=== PATIENT | female | born 1995 | race Caucasian/White ===

== ENCOUNTER → 2017-01-29 | Outpatient (CLI) | payer BC ==
[2017-01-30 14:31] LABS: CONTROL LINE MONO EB INT CTR LINE PRESENT; MONO REFLEX EBV VCA IgM NEGATIVE (NEGATIVE)
== END ==
LOC: M LAB 16:52
PROVIDERS: ATTEND Family Medicine
DX: J02.9 Acute pharyngitis, unspecified (principal)

== ENCOUNTER → 2017-03-14 | Outpatient (REF) | payer BC | LOC: M SFHCWAGY 08:30 | PROVIDERS: ATTEND Nurse Practitioner Women's Health | DX: Z12.4 Encounter for screening for malignant neoplasm of cervix (principal) ==

== ENCOUNTER → 2017-04-14 | Outpatient (REF) | payer BC | LOC: M SFHCWAGY 11:56 | PROVIDERS: ATTEND Nurse Practitioner Women's Health | DX: R87.615 Unsatisfactory cytologic smear of cervix (principal) ==

== ENCOUNTER → 2017-07-14 | Outpatient (REF) | payer BC | LOC: M SFHCWAGY 15:34 | PROVIDERS: ATTEND Nurse Practitioner Women's Health | DX: Z11.3 Encounter for screening for infections with a predominantly sexual mode of transmission (principal) ==

== ENCOUNTER → 2018-03-17 | Outpatient (REF) | payer BC ==
[2018-03-17 14:44] LABS: CHLAMYDIA DNA AMPLIFICATION NEGATIVE (NEGATIVE); GC DNA AMPLIFICATION NEGATIVE (NEGATIVE)
== END ==
LOC: M SFHCWAGY 09:42
DX: Z12.4 Encounter for screening for malignant neoplasm of cervix (principal); Z11.3 Encounter for screening for infections with a predominantly sexual mode of transmission
CPT/HCPCS: 87591

== ENCOUNTER → 2018-08-10 | Outpatient (REF) | payer BC ==
[2018-08-10 22:07] LABS: CHLAMYDIA DNA AMPLIFICATION NEGATIVE (NEGATIVE); GC DNA AMPLIFICATION NEGATIVE (NEGATIVE)
== END ==
LOC: M SFHCWAGY 15:49
DX: Z11.3 Encounter for screening for infections with a predominantly sexual mode of transmission (principal)
CPT/HCPCS: 87591

== ENCOUNTER → 2018-10-23 | Outpatient (REF) | payer BC ==
[2018-10-23 19:41] LABS: CHLAMYDIA DNA AMPLIFICATION NEGATIVE (NEGATIVE); GC DNA AMPLIFICATION NEGATIVE (NEGATIVE)
== END ==
LOC: M LAB REF 15:43
PROVIDERS: ATTEND Family Medicine
DX: N76.0 Acute vaginitis (principal)

== ENCOUNTER → 2018-11-12 | Outpatient (CLI) | payer BC ==
--- NOTE | 2018-11-13 02:38 | REP ---
Clinical: Pelvic pain. IUD positioning . Technique: Transabdominal pelvic ultrasound followed by transvaginal examination for better evaluation of the endometrium and adnexa with color Doppler evaluation of the ovaries. Findings: Bladder is unremarkable and measures 9.1 x 8.2 x 8.9 cm . Normal anteverted uterus measures 8.4 x 3.5 x 3.8 cm . The endometrial complex measures 6.3 mm thickness. No discrete uterine or endometrial abnormalities are appreciated. IUD identified in satisfactory position. Bilateral ovaries are normal in appearance and vascularity without evidence for torsion. Right ovary measures 2.2 x 1.3 x 2.3 cm ; R I = 0.52 . Left ovary measures 4.8 x 2.4 x 4.1 cm with 4.1 x 1.8 x 3.0 cm cyst/daughter cyst complex ; R I = 0.53 . no pelvic fluid or adnexal mass lesion . Impression: 1. normal anteverted uterus with IUD in satisfactory position. 2. Normal bilateral ovaries without evidence for torsion.
== END ==
LOC: M WHC 12:14
PROVIDERS: ATTEND Nurse Practitioner Women's Health
DX: R10.2 Pelvic and perineal pain (principal); Z97.5 Presence of (intrauterine) contraceptive device

== ENCOUNTER → 2019-04-30 | Outpatient (CLI) | payer BC ==
--- NOTE | 2019-04-30 10:37 | REPVR ---
EXAM: CT Head Without Contrast EXAM DATE/TIME: 04/30/2019 10:11 AM CLINICAL HISTORY: 24 years old, female; Pain; Headache not specified TECHNIQUE: Imaging protocol: Computed tomography images of the head without contrast. Radiation optimization: All CT scans at this facility use at least one of these dose optimization techniques: automated exposure control; mA and/or kV adjustment per patient size (includes targeted exams where dose is matched to clinical indication); or iterative reconstruction. COMPARISON: None FINDINGS: Brain: Symmetric caliber of the cortical sulci. Normal saha-white matter differentiation. No acute cortical infarct, mass effect, or intracranial hemorrhage. Ventricles: Normal configuration of the ventricles. Bones/joints: No acute calvarial pathology. Sinuses: No sinus fluid. Mastoid air cells: Mild asymmetry in pneumatization of the mastoid air cells. Soft tissues: Unremarkable. IMPRESSION: No acute intracranial pathology. Electronically signed by: Scott Morgan On 04/30/2019 10:36:33 AM
== END ==
LOC: M RAD 09:43
PROVIDERS: ATTEND Physician Assistant
DX: R51 Headache (principal)

== ENCOUNTER → 2020-06-28 | Outpatient (CLI) | payer BC ==
--- NOTE | 2020-06-29 15:15 | ECHO ---
DATE OF PROCEDURE: 06/28/2020 Age: 25 Gender: Female Height: 64 inches Weight: 180 pounds Body surface area: 1.87 m2 PATIENT LOCATION: Outpatient. REFERRING PHYSICIAN: VADIM Rodriguez INDICATION: Family history of ischemic heart disease. MEASUREMENTS: 2D Measurements: RV 2.8 cm LV 3.9 cm Septum 1.0cm Posterior wall 1.0 cm Aortic Root 2.9 cm LA 2.9 cm LVEF 70 % Doppler Measurements: AV 1.3 m/s LVOT 0.86 m/s LVOT diameter 1.6 cm MV-E 75, A 60, E/A ratio 1.2 Early mitral deceleration time 222 m/s E prime medial 8.1, A prime medial 10, E prime lateral 10 PV 0.75 m/s Pulmonary artery acceleration time 130 m/s PASP 24 mmHg IVC 1.5 cm COMMENTS: Normal sinus rhythm without intraventricular conduction disturbance. M-mode and two-dimensional echocardiography was performed with pulsed, continuous wave, color flow, and tissue Doppler studies. Normal left ventricular size, wall thickness, and wall motion. Normal left atrial size and Doppler assessment of LV diastolic function and estimated mean left atrial pressure. Normal right heart chamber sizes and motion and estimated pulmonary arterial pressure. Normal inferior vena cava (IVC) size and collapse against an elevated central venous pressure. Normal aortic root size. Normal appearing and functioning valvular structures. No apparent intracardiac mass or pericardial effusion. MTDD
== END ==
LOC: M CARPUL 09:00
PROVIDERS: ATTEND Physician Assistant
DX: Z82.49 Family history of ischemic heart disease and other diseases of the circulatory system (principal)

== ENCOUNTER → 2020-09-12 | Outpatient (CLI) | payer SELFPAY | LOC: M LABSMTC 18:01 | PROVIDERS: ATTEND Pediatrics | DX: Z11.59 Encounter for screening for other viral diseases (principal) ==

== ENCOUNTER → 2020-10-01 | Outpatient (CLI) | payer SELFPAY | LOC: M LABSMTC 11:24 | PROVIDERS: ATTEND Pediatrics | DX: Z20.828 Contact with and (suspected) exposure to other viral communicable diseases (principal) ==

== ENCOUNTER → 2020-10-26 | Outpatient (REF) | payer BC | LOC: M LAB REF 18:19 | PROVIDERS: ATTEND Physician Assistant | DX: J06.9 Acute upper respiratory infection, unspecified (principal) ==

== ENCOUNTER → 2021-01-10 | Outpatient (REF) | payer BC | LOC: M SFHCWAGY 13:38 | PROVIDERS: ATTEND Nurse Practitioner Women's Health | DX: Z12.4 Encounter for screening for malignant neoplasm of cervix (principal); B37.3 Candidiasis of vulva and vagina; R87.610 Atypical squamous cells of undetermined significance on cytologic smear of cervix (ASC-US) | CPT/HCPCS: 87624; G0123 ==

== ENCOUNTER → 2021-02-19 | Outpatient (REF) | payer BC | LOC: M SFHCWAGY 12:57 | PROVIDERS: ATTEND Nurse Practitioner Women's Health | DX: R87.610 Atypical squamous cells of undetermined significance on cytologic smear of cervix (ASC-US) (principal); R87.810 Cervical high risk human papillomavirus (HPV) DNA test positive ==

== ENCOUNTER → 2021-07-03 | Outpatient (REF) | payer BC | LOC: M LAB REF 00:01 | PROVIDERS: ATTEND Family Medicine | DX: J06.9 Acute upper respiratory infection, unspecified (principal) ==

== ENCOUNTER → 2022-02-27 | Outpatient (REF) | payer BC | LOC: M PLALAB 14:28 | PROVIDERS: ATTEND Advanced Practice Midwife | DX: Z11.3 Encounter for screening for infections with a predominantly sexual mode of transmission (principal) ==

== ENCOUNTER → 2022-08-07 | Outpatient (REF) | payer BC | LOC: M PLALAB 14:53 | PROVIDERS: ATTEND Advanced Practice Midwife | DX: R87.612 Low grade squamous intraepithelial lesion on cytologic smear of cervix (LGSIL) (principal); R87.810 Cervical high risk human papillomavirus (HPV) DNA test positive | CPT/HCPCS: 87624; G0123 ==

== ENCOUNTER → 2022-08-16 | Outpatient (CLI) | payer BC ==
[2022-08-16 15:54] LABS: HEMOGLOBIN A1c 5.6 %
== END ==
LOC: M PLALAB 09:13
PROVIDERS: ATTEND Advanced Practice Midwife
DX: L70.0 Acne vulgaris (principal)

== ENCOUNTER → 2022-10-16 | Outpatient (REF) | payer BC | LOC: M PLALAB 14:22 | PROVIDERS: ATTEND Obstetrics & Gynecology | DX: R87.612 Low grade squamous intraepithelial lesion on cytologic smear of cervix (LGSIL) (principal); R87.611 Atypical squamous cells cannot exclude high grade squamous intraepithelial lesion on cytologic smear of cervix (ASC-H) ==

== ENCOUNTER → 2023-05-12 | Outpatient (CLI) | payer BC ==
[2023-05-12 08:37] LABS: BASO % 0.7 % (0.0-1.0); EOS # 0.1 10^3/uL (0.0-0.5); EOS % 1.1 % (0.0-3.0); HEMATOCRIT 41.1 % (36.0-47.0); HEMOGLOBIN 13.6 g/dl (12.0-15.5); LYMPH # 1.3 10^3/uL (1.5-5.0); LYMPH % 27.9 % (24.0-44.0); MEAN CORPUSCULAR HEMOGLOBIN 29.5 pg (27.0-33.0); MEAN CORPUSCULAR HGB CONC 33.1 g/dl (32.0-36.5); MEAN CORPUSCULAR VOLUME 89.2 fl (80.0-96.0); MONO # 0.3 10^3/uL (0.0-0.8); MONO % 7.2 % (2.0-8.0); NEUTROPHILS # 2.9 10^3/uL (1.5-8.5); NEUTROPHILS % 62.9 % (36.0-66.0); PLATELET COUNT, AUTOMATED 220 10^3/uL (150-450); RED BLOOD COUNT 4.61 10^6/uL (4.00-5.40); WHITE BLOOD COUNT 4.6 10^3/uL (4.0-10.0)
[2023-05-12 08:54] LABS: HEMOGLOBIN A1c 5.4 % (4.0-6.0)
[2023-05-12 09:11] LABS: ALBUMIN 3.7 G/DL (3.2-5.2); ALKALINE PHOSPHATASE 99 U/L (46-116); ALT/SGPT 19 U/L (7.0-40); AST/SGOT 9 U/L (<34); BILIRUBIN,TOTAL 0.5 MG/DL (0.3-1.2); BLOOD UREA NITROGEN 12 MG/DL (9-23); CALCIUM LEVEL 9.3 MG/DL (8.5-10.1); CARBON DIOXIDE LEVEL 27 MMOL/L (20-31); CHLORIDE LEVEL 106 MMOL/L (98-107); CHOLESTEROL LEVEL 138 MG/DL (<200); CHOLESTEROL RISK RATIO 2.73 (<5); CREATININE FOR GFR 0.74 MG/DL (0.55-1.30); GLOMERULAR FILTRATION RATE > 60.0 (>60); GLUCOSE, FASTING 98 MG/DL (60-100); HDL CHOLESTEROL 50.4 MG/DL (>40); LDL CHOLESTEROL 72.6 MG/DL (<100); NON-HDL-C 87.6 MG/DL; POTASSIUM SERUM 4.3 MMOL/L (3.5-5.1); SODIUM LEVEL 141 MMOL/L (136-145); TOTAL PROTEIN 6.6 G/DL (5.7-8.2); TRIGLYCERIDES LEVEL 75 MG/DL (<150)
== END ==
LOC: M LAB 08:01
PROVIDERS: ATTEND Family Medicine
DX: Z13.29 Encounter for screening for other suspected endocrine disorder (principal); Z13.0 Encounter for screening for diseases of the blood and blood-forming organs and certain disorders involving the immune mechanism; Z13.220 Encounter for screening for lipoid disorders

== ENCOUNTER → 2023-05-30 | Outpatient (REF) | payer BC | LOC: M PLALAB 07:52 | PROVIDERS: ATTEND Advanced Practice Midwife | DX: Z12.4 Encounter for screening for malignant neoplasm of cervix (principal) | CPT/HCPCS: 87624; G0123 ==

== ENCOUNTER → 2023-06-17 | Outpatient (CLI) | payer BC ==
[2023-06-17 14:19] LABS: IRON (FE) 76 UG/DL (50-170); PERCENT SATURATION 21.8 % (13.2-45.0); TOTAL IRON BINDING CAPACITY 349 UG/DL (250-425)
[2023-06-17 14:21] LABS: FERRITIN 55.1 NG/ML (7.3-270.7); FREE T4 1.04 NG/DL (0.89-1.76); THYROID STIMULATING HORMONE 0.984 uIU/ML (0.55-4.78)
[2023-06-17 14:22] LABS: FOLATE > 24.0 NG/ML (>5.4); TOTAL 25(OH) VITAMIN D 38.2 NG/ML (20.0-100.0); VITAMIN B12 LEVEL 473 PG/ML (211-911)
== END ==
LOC: M CARPUL 13:17
PROVIDERS: ATTEND Family Medicine
DX: R53.83 Other fatigue (principal); Z82.49 Family history of ischemic heart disease and other diseases of the circulatory system

== ENCOUNTER → 2024-02-23 | Outpatient (CLI) | payer BC | LOC: M WHC 07:56 | PROVIDERS: ATTEND Family Medicine | DX: R74.01 Elevation of levels of liver transaminase levels (principal) ==

== ENCOUNTER → 2024-06-03 | Outpatient (REF) | payer BC ==
[2024-06-03 14:28] LABS: Trichomonas vaginalis (AMP) NOT DETECTED (NEGATIVE)
[2024-06-03 14:51] LABS: GC DNA AMPLIFICATION NEGATIVE (NEGATIVE)
[2024-06-09 13:11] LABS: HPV APTIMA Not Detected (Not Detected)
== END ==
LOC: M PLALAB 10:19
PROVIDERS: ATTEND Advanced Practice Midwife
DX: Z12.4 Encounter for screening for malignant neoplasm of cervix (principal); Z11.51 Encounter for screening for human papillomavirus (HPV); Z11.3 Encounter for screening for infections with a predominantly sexual mode of transmission
CPT/HCPCS: 87624; 87661; 87810; 87850; G0123

== ENCOUNTER → 2025-02-05 | Outpatient (CLI) | payer BC | LOC: M RAD 13:56 | PROVIDERS: ATTEND Family Medicine | DX: M54.6 Pain in thoracic spine (principal) ==

== ENCOUNTER → 2025-06-09 | Outpatient (REF) | payer BC ==
[2025-06-11 17:13] LABS: HPV APTIMA Not Detected (Not Detected)
== END ==
LOC: M PLALAB 15:53
PROVIDERS: ATTEND Advanced Practice Midwife
DX: Z12.4 Encounter for screening for malignant neoplasm of cervix (principal); R87.610 Atypical squamous cells of undetermined significance on cytologic smear of cervix (ASC-US)
CPT/HCPCS: 87624; G0123